=== PATIENT | female | born 1970 | race Caucasian/White ===

== ENCOUNTER 2020-08-01 10:00 | Emergency (ER) | payer MEDICAID ==
[~2020-08-01] VITALS: Ht 157.5 cm; Wt 64.0 kg
[2020-08-01 10:10] VITALS: Ht 157.5 cm; Wt 64.0 kg
[2020-08-01] MEDS ORDERED: ACETAMINOPHEN500 M5 PO (11:56)
[2020-08-01] MEDS ORDERED: NOR10T PO (11:56)
[2020-08-01] MEDS ORDERED: MACROBID100 MG PO (11:56)
[2020-08-01] MEDS ORDERED: MOT600 PO (11:56)
[2020-08-01 12:15] VITALS: BP 125/70
== END 2020-08-01 12:15 | disposition home or self-care (01) ==
LOC: ED 10:00
DX: N39.0 Urinary tract infection, site not specified (principal); R10.2 Pelvic and perineal pain; N83.201 Unspecified ovarian cyst, right side
CPT/HCPCS: J1885